=== PATIENT | female | born 1960 | race Caucasian/White ===

== ENCOUNTER → 2016-05-11 | Outpatient (CLI) | payer BC ==
--- NOTE | 2016-05-11 09:37 | CR ---
EXAMINATION: Right shoulder HISTORY: Fracture COMPARISON: 04/20/2016 TECHNIQUE: 2 views FINDINGS/IMPRESSION: There is a stable healing comminuted proximal right humerus fracture identified , grossly unchanged in position and alignment. The remaining adjacent osseous structures appear inta ct.
== END ==
LOC: MW.CHORTHO 07:49
PROVIDERS: ATTEND Physician Assistant
DX: S42.201D Unspecified fracture of upper end of right humerus, subsequent encounter for fracture with routine healing (principal)
CPT/HCPCS: 73030-26-RT; 73030-RT

== ENCOUNTER → 2016-07-06 | Outpatient (CLI) | payer BC ==
--- NOTE | 2016-07-06 10:22 | CR ---
EXAMINATION: Right shoulder HISTORY: Fracture COMPARISON: 06/08/2016 TECHNIQUE: 2 views FINDINGS/IMPRESSION: There is a stable nearly well-healed proximal right humerus fracture. Bone mine ralization otherwise appears normal. The remaining osseous structures appear intact.
== END ==
LOC: MW.CHORTHO 06:56
PROVIDERS: ATTEND Orthopaedic Surgery
DX: S42.201D Unspecified fracture of upper end of right humerus, subsequent encounter for fracture with routine healing (principal)
CPT/HCPCS: 73030-26-RT; 73030-RT

== ENCOUNTER 2017-02-25 07:34 | Day surgery (SDC) | payer BC ==
[~2017-02-25 07:34] MED LIST: Acetaminophen/HYDROcodone 325-5 MG Tab PO PRN; Bupivacaine 25%/EPINEPHrine/PF 30 ML ONE; Lactated Ringers 1,000 ML IV SCH; ceFAZolin 2 GM in Premix Bag 1 BAG IV ONE
[2017-02-25] MEDS ORDERED: Midazolam 1 MG/ML 2 ML SDV ONE ×2 (07:46→08:01)
[2017-02-25] MEDS ORDERED: fentaNYL 100 MCG/2 ML SDV ONE ×2 (07:46→08:01)
[2017-02-25] MEDS ORDERED: Propofol 200 MG/20 ML SDV ONE ×2 (07:46→08:01)
[2017-02-25] MEDS ORDERED: Lidocaine 2% 5 ML SDV ONE ×2 (07:46→08:01)
[2017-02-25] MEDS ORDERED: Ketorolac 30 MG/ML SDV ONE (08:23)
[2017-02-25] MEDS ORDERED: Ondansetron 4 MG/2 ML SDV ONE (08:23)
--- NOTE | 2017-02-25 08:27 | PCM.PREANE ---
Preanesthetic Assessment - Procedure Proposed Procedure: Right carpal tunnel release - Anesthesia/Transfusion/Family Hx Anesthesia History: Prior Anesthesia Without Reaction Other Type of Anesthesia Reaction Comment: pt denies any anesthesia problems Family History of Anesthesia Reaction: No Transfusion History: No Prior Transfusion(s) - Review of Systems General: No Symptoms Pulmonary: No Symptoms Cardiovascular: No Symptoms Gastrointestinal: No Symptoms Neurological: No Symptoms Other: Reports: None - Physical Assessment O2 Sat by Pulse Oximetry: 97 Respiratory Rate: 16 Vital Signs: Last Vital Signs Temp 36 C 02/25/17 07:50 Pulse 84 02/25/17 07:50 Resp 16 02/25/17 07:50 BP 117/74 02/25/17 07:50 Pulse Ox 97 02/25/17 07:50 Height: 1.63 m Weight: 69.853 kg ASA Class: 2 Mental Status: Alert & Oriented x3 Airway Class: Mallampati = 2 Dentition: Reports: Normal Dentition Thyro-Mental Finger Breadths: 3 Mouth Opening Finger Breadths: 3 ROM/Head Extension: Full Lungs: Clear to Auscultation, Normal Respiratory Effort - Allergies Allergies/Adverse Reactions: Allergies Allergy/AdvReac Type Severity Reaction Status Date / Time No Known Allergies Allergy Verified 02/21/17 16:45 - Acknowledgements Anesthesia Type Planned: MAC Pt an Appropriate Candidate for the Planned Anesthesia: Yes Alternatives and Risks of Anesthesia Discussed w Pt/Guardian: Yes Pt/Guardian Understands and Agrees with Anesthesia Plan: Yes PreAnesthesia Questionnaire HEENT History: Reports: Impaired Vision Other HEENT History: wears glasses Cardiovascular History: Reports: None Respiratory History: Reports: None Gastrointestinal History: Reports: None Genitourinary History: Reports: None 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: Musculoskeletal History: Reports: Fracture Other Musculoskeletal History: hx of fx right humerus Neurological History: Reports: None Psychiatric History: Reports: None Endocrine/Metabolic History: Reports: None Hematologic History: Reports: None Immunologic History: Reports: None Oncologic (Cancer) History: Reports: None Dermatologic History: Reports: None - Infectious Disease History Infectious Disease History: Reports: Chicken Pox, Mumps - Past Surgical History Head Surgeries/Procedures: Reports: None HEENT Surgical History: Reports: Tonsillectomy Female Surgical History: Reports: Breast Reduction, Hysterectomy - SUBSTANCE USE Smoking Status *Q: Former Smoker Second Hand Smoke Exposure: No Days Per Week of Alcohol Use: 7 Number of Drinks Per Day: 1 Total Drinks Per Week: 7 Recreational Drug Use History: No - HOME MEDS Home Medications: Home Meds Multivitamin [Multivitamins] 1 tab PO DAILY 02/20/14 [History] LORazepam 0.5 mg PO BEDTIME PRN 02/21/17 [History] Vitamin B Complex 1 cap PO DAILY 02/21/17 [History] - CURRENT (IN HOUSE) MEDS Current Meds: Current Medications Hydrocodone Bitart/Acetaminophen ([place] 325-5 Mg) 1 tab PO Q4H PRN PRN Reason: Pain Bupivacaine HCl/Epinephrine Bitart (Marcaine 0.25%/Epinephrine 1:200,000) 10 ml INJECT ONETIME ONE Stop: 02/25/17 09:01 Lactated Ringer's (Ringers, Lactated) 1,000 mls @ 125 mls/hr IV ASDIRECTED [facility] Last Admin: 02/25/17 07:51 Dose: 125 mls/hr Discontinued Medications Fentanyl (Sublimaze) Confirm Administered Dose 100 mcg .ROUTE .STK-MED ONE Stop: 02/25/17 07:47 Fentanyl (Sublimaze) Confirm Administered Dose 100 mcg .ROUTE .STK-MED ONE Stop: 02/25/17 08:02 Cefazolin Sodium/Dextrose 2 gm (/ Premix) 50 mls @ 100 mls/hr IV ONETIME ONE Stop: 02/24/17 18:14 Bupivacaine HCl/Epinephrine Bitart (Sensorc Mpf 0.25%-Epi 1:790380) Confirm Administered Dose 30 mls @ as directed .ROUTE .STK-MED ONE Stop: 02/25/17 07:30 Lidocaine (Xylocaine-Mpf 2%) Confirm Administered Dose 5 ml .ROUTE .STK-MED ONE Stop: 02/25/17 07:47 Lidocaine (Xylocaine-Mpf 2%) Confirm Administered Dose 5 ml .ROUTE .STK-MED ONE Stop: 02/25/17 08:02 Midazolam HCl (Versed 1 Mg/Ml) Confirm Administered Dose 2 mg .ROUTE .STK-MED ONE Stop: 02/25/17 07:47 Midazolam HCl (Versed 1 Mg/Ml) Confirm Administered Dose 2 mg .ROUTE .STK-MED ONE Stop: 02/25/17 08:02 Propofol (Diprivan 20 Ml) Confirm Administered Dose 200 mg .ROUTE .STK-MED ONE Stop: 02/25/17 07:47 Propofol (Diprivan 20 Ml) Confirm Administered Dose 200 mg .ROUTE .STK-MED ONE Stop: 02/25/17 08:02
--- NOTE | 2017-02-25 08:55 | PCM48HPAN ---
Post Anesthesia Note - EVALUATION WITHIN 48HRS OF ANESTHETIC Vital Signs in Normal Range: Yes Patient Participated in Evaluation: Yes Respiratory Function Stable: Yes Airway Patent: Yes Cardiovascular Function Stable: Yes Hydration Status Stable: Yes Pain Control Satisfactory: Yes Nausea and Vomiting Control Satisfactory: Yes Mental Status Recovered: Yes - COMMENTS/OBSERVATIONS Free Text/Narrative:: no anesthesia problems, patient skipped recovery room stage of postoperative care
[2017-02-25] MEDS ORDERED: Bupivacaine 0.25%/EPINEPHrine 1:200,000 10 ML SDV INJECT ONE (09:00)
[2017-02-25 09:25] VITALS: BP 121/78
--- NOTE | 2017-02-25 19:58 | OR ---
SURGEON: CATHY CARBAJAL MD DATE OF PROCEDURE: 02/25/2017 PREOPERATIVE DIAGNOSIS: Right carpal tunnel syndrome. POSTOPERATIVE DIAGNOSIS: Right carpal tunnel syndrome. PROCEDURE: Right carpal tunnel release. 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 ANESTHESIA: Local MAC. INDICATIONS: Ms. Hernandez is a 56-year-old female with right carpal tunnel symptoms. Risks and benefits of release were discussed with her and she was in agreement to proceed. Risks were including, but not limited to, bleeding, infection, damage to underlying or overlying structures, possible need for future interventions, and possible scarring. PROCEDURE IN DETAIL: After informed consent was obtained and placed on the chart, the patient was brought to the operating theater and laid in supine position. After adequate local MAC anesthesia was obtained, the area was prepped and draped and a time- out was completed to confirm side and site. The arm was exsanguinated and tourniquet was insufflated to 200 mmHg after injection of local and a 15 blade was used to dissect through the skin and subcutaneous tissues under direct visualization until the ligament was breached. Then, dissection was continued distally and proximally under direct visualization until complete release of the ligament. Once adequately released, the area was irrigated and a 5-0 nylon stitch was used to close the skin in a horizontal mattress fashion. The wound was dressed with Xeroform and fluffs and Kerlix, Darian dressing and a 2-inch Eric wrap. The patient tolerated the procedure well. All counts and needles were correct at the end of the case. FOLLOWUP INSTRUCTIONS: The patient will take tramadol for pain and will follow up with us in about two weeks for suture removal, sooner if any problems, questions, or concerns. HEGGTCHELO / ROSE /[id number] SHERLY
--- NOTE | 2017-03-03 16:58 | PCM.HPR ---
H & P Addendum review - H & P Addendum Review Date of Original H & P: 02/17/17 Date Reviewed: 02/25/17 Patient was Examined: Changes (medication changes noted. Otherwise up to date.)
== END 2017-02-25 09:22 | disposition home or self-care (01) ==
LOC: MW.SDS 07:34
PROVIDERS: ATTEND Plastic Surgery
DX: G56.03 Carpal tunnel syndrome, bilateral upper limbs (principal); Z98.890 Other specified postprocedural states; Z90.710 Acquired absence of both cervix and uterus; Z87.891 Personal history of nicotine dependence; Z79.899 Other long term (current) drug therapy; Z82.49 Family history of ischemic heart disease and other diseases of the circulatory system
CPT/HCPCS: 64721; J1885; J2250; J2405; J3010; J7120; 01810; J2704

== ENCOUNTER 2018-10-17 08:14 | Day surgery (SDC) | payer BC ==
[~2018-10-17 08:14] MED LIST changes: -Acetaminophen/HYDROcodone 325-5 MG Tab PO PRN; -Bupivacaine 25%/EPINEPHrine/PF 30 ML ONE; +Sodium Chloride 0.9% 10 ML SDV IV PRN; +Sodium Chloride 0.9% 10 ML Syringe FLUSH PRN; +Sodium Chloride 0.9% 2.5 ML Syringe FLUSH PRN; -ceFAZolin 2 GM in Premix Bag 1 BAG IV ONE
[2018-10-17] MEDS ORDERED: Propofol 200 MG/20 ML SDV ONE (08:27)
[2018-10-17] MEDS ORDERED: fentaNYL 100 MCG/2 ML SDV ONE (08:27)
[2018-10-17] MEDS ORDERED: Midazolam 1 MG/ML 2 ML SDV ONE (08:27)
[2018-10-17] MEDS ORDERED: Lidocaine 2% 5 ML SDV ONE (08:27)
--- NOTE | 2018-10-17 09:07 | PCM.PREANE ---
Preanesthetic Assessment - Anesthesia/Transfusion/Family Hx Anesthesia History: Prior Anesthesia Without Reaction Other Type of Anesthesia Reaction Comment: pt denies any anesthesia problems Family History of Anesthesia Reaction: No Transfusion History: No Prior Transfusion(s) - Review of Systems General: No Symptoms Pulmonary: No Symptoms Cardiovascular: No Symptoms Gastrointestinal: No Symptoms Neurological: No Symptoms Other: Reports: None - Physical Assessment Vital Signs: Last Vital Signs Temp 97.9 F 10/17/18 08:29 Pulse 75 10/17/18 08:29 Resp 14 10/17/18 08:29 BP 133/87 10/17/18 08:29 Pulse Ox 97 10/17/18 08:29 Height: 5 ft 4 in Weight: 72.575 kg ASA Class: 2 Mental Status: Alert & Oriented x3 Airway Class: Mallampati = 2 Dentition: Reports: Normal Dentition ROM/Head Extension: Full Lungs: Clear to Auscultation, Normal Respiratory Effort Cardiovascular: Regular Rate, Regular Rhythm - Allergies Allergies/Adverse Reactions: Allergies Allergy/AdvReac Type Severity Reaction Status Date / Time No Known Allergies Allergy Verified 10/12/18 12:36 - Blood Blood Available: No - Anesthesia Plan Pre-Op Medication Ordered: None - Acknowledgements Anesthesia Type Planned: General Anesthesia Pt an Appropriate Candidate for the Planned Anesthesia: Yes Alternatives and Risks of Anesthesia Discussed w Pt/Guardian: Yes Pt/Guardian Understands and Agrees with Anesthesia Plan: Yes Additional Comments: anes prob list: seasonal allergies/rhinitis, insomnia PLAN: tiva PreAnesthesia Questionnaire HEENT History: Reports: Impaired Vision Other HEENT History: wears glasses Cardiovascular History: Reports: None Respiratory History: Reports: None Gastrointestinal History: Reports: Colon Polyp Genitourinary History: Reports: None 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 History: Reports: Fracture Other Musculoskeletal History: hx of fx right humerus Neurological History: Reports: None Psychiatric History: Reports: None Endocrine/Metabolic History: Reports: None Hematologic History: Reports: None Immunologic History: Reports: None Oncologic (Cancer) History: Reports: None Dermatologic History: Reports: None - Infectious Disease History Infectious Disease History: Reports: Chicken Pox, Mumps - Past Surgical History Head Surgeries/Procedures: Reports: None HEENT Surgical History: Reports: Tonsillectomy Cardiovascular Surgical History: Reports: None Respiratory Surgical History: Reports: None GI Surgical History: Reports: Colonoscopy Female Surgical History: Reports: Breast Reduction, Hysterectomy Endocrine Surgical History: Reports: None Neurological Surgical History: Reports: None Musculoskeletal Surgical History: Reports: Carpal Tunnel Oncologic Surgical History: Reports: None Dermatological Surgical History: Reports: Other (See Below) - SUBSTANCE USE Smoking Status *Q: Never Smoker Recreational Drug Use History: No - HOME MEDS Home Medications: Home Meds LORazepam 0.5 mg PO BEDTIME PRN 02/21/17 [History] Aspirin [Adult Low Dose Aspirin EC] 81 mg PO DAILY 10/12/18 [History] Estradiol [Vagifem] 1 tab VAG ASDIRECTED 10/12/18 [History] Fluticasone Propionate [Flonase Allergy Relief] 1 spray NASBOTH ASDIRECTED PRN 10/12/18 [History] Multivitamin [Gummi Bear Multivitamin] 2 tab.chew CHEW DAILY 10/12/18 [History] - CURRENT (IN HOUSE) MEDS Current Meds: Current Medications Lactated Ringer's (Ringers, Lactated) 1,000 mls @ 125 mls/hr IV ASDIRECTED [facility] Last Admin: 10/17/18 08:50 Dose: 125 mls/hr Sodium Chloride (Saline Flush) 10 ml FLUSH ASDIRECTED PRN PRN Reason: Keep Vein Open Sodium Chloride (Saline Flush) 2.5 ml FLUSH ASDIRECTED PRN PRN Reason: Keep Vein Open Sodium Chloride (Saline Flush) 10 ml FLUSH ASDIRECTED PRN PRN Reason: Keep Vein Open Sodium Chloride (Saline Flush) 2.5 ml FLUSH ASDIRECTED PRN PRN Reason: Keep Vein Open Sodium Chloride (Normal Saline) 10 ml IV ASDIRECTED PRN PRN Reason: IV Use Discontinued Medications Fentanyl (Sublimaze) Confirm Administered Dose 100 mcg .ROUTE .STK-MED ONE Stop: 10/17/18 08:28 Lidocaine (Xylocaine-Mpf 2%) Confirm Administered Dose 5 ml .ROUTE .STK-MED ONE Stop: 10/17/18 08:28 Midazolam HCl (Versed 1 Mg/Ml) Confirm Administered Dose 2 mg .ROUTE .STK-MED ONE Stop: 10/17/18 08:28 Propofol (Diprivan 20 Ml) Confirm Administered Dose 400 mg .ROUTE .STK-MED ONE Stop: 10/17/18 08:28
--- NOTE | 2018-10-17 09:37 | PCM.OPNOTE ---
- General Post-Op/Procedure Note Date of Surgery/Procedure: 10/17/18 Operative Procedure(s): screening colonoscopy Findings: distal transverse colon lesion Pre Op Diagnosis: screening colonoscopy Post-Op Diagnosis: distal transverse colon lesion Anesthesia Technique: MAC Primary Surgeon: Randa Xavier Pathology: distal transverse colon lesion EBL in mLs: 0 Condition: Good
--- NOTE | 2018-10-17 09:54 | PCM.POSTAN ---
POST ANESTHESIA ASSESSMENT - MENTAL STATUS Mental Status: Alert, Oriented - VITAL SIGNS Vital Signs: Last Vital Signs Temp 97.9 F 10/17/18 08:29 Pulse 88 10/17/18 09:47 Resp 13 10/17/18 09:47 BP 123/75 10/17/18 09:47 Pulse Ox 96 10/17/18 09:47 - RESPIRATORY Respiratory Status: Respiratory Rate WNL, Airway Patent, O2 Saturation Stable - CARDIOVASCULAR CV Status: Pulse Rate WNL, Blood Pressure Stable - GASTROINTESTINAL GI Status: No Symptoms - POST OP HYDRATION Hydration Status: Adequate & Stable
--- NOTE | 2018-10-17 09:54 | PCM48HPAN ---
Post Anesthesia Note - EVALUATION WITHIN 48HRS OF ANESTHETIC Vital Signs in Normal Range: Yes Patient Participated in Evaluation: Yes Respiratory Function Stable: Yes Airway Patent: Yes Cardiovascular Function Stable: Yes Hydration Status Stable: Yes Pain Control Satisfactory: Yes Nausea and Vomiting Control Satisfactory: Yes Mental Status Recovered: Yes Vital Signs: Last Vital Signs Temp 97.9 F 10/17/18 08:29 Pulse 88 10/17/18 09:47 Resp 13 10/17/18 09:47 BP 123/75 10/17/18 09:47 Pulse Ox 96 10/17/18 09:47
[2018-10-17 10:36] VITALS: BP 138/79; PULSE 70
--- NOTE | 2018-10-18 13:57 | OR ---
SURGEON: RANDA XAVIER MD DATE OF PROCEDURE: 10/17/2018 PREOPERATIVE DIAGNOSIS: Screening colonoscopy. POSTOPERATIVE DIAGNOSIS: Transverse colon lesion. PROCEDURE PERFORMED: Screening colonoscopy. PRIMARY SURGEON: Randa Xavier MD. ANESTHESIA: MAC. INSTRUMENT USED: Olympus colonoscope. EXTENT OF EXAM: To the cecum. PREPARATION: Good. LIMITATIONS: None. INDICATIONS FOR EXAMINATION: The patient is a 58-year-old female who presents for a screening colonoscopy. I explained the procedure; expected perioperative course; and risks including bleeding, infection, or damage to surrounding structures including perforation. The patient verbalized understanding and wishes to proceed. PROCEDURE IN DETAIL: The patient was brought into the endoscopy suite and placed in a left lateral decubitus position. A time-out was completed verifying the patient's name, age, date of , allergies, and procedure to be performed. Monitored anesthesia care was induced and continuous oxygen was provided via nasal cannula throughout the procedure. After adequate sedation was achieved, a digital rectal exam was performed. This exam was within normal limits. A well-lubricated colonoscope was inserted in the rectum and advanced under direct visualization to the level of the cecum. The cecum was identified by both visual and anatomic landmarks. A photograph was taken of the cecal cap; however, I was unable to retroflex the scope within the cecum due to looping of the scope more proximally. The scope was then fully withdrawn while examining the color, texture, anatomy, and integrity of the mucosa from the cecum to the anal canal. The patient was found to have an elevated area of mucosa in the distal transverse colon proximal to the splenic flexure. This did not overtly appear to be a polyp. However, since it was a raised area of the mucosa, biopsies were taken as well as photographs. The remainder of the colon appeared normal. The scope was brought into the rectum and retroflexed to allow visualization of the anal canal opening. This appeared normal and a photograph was taken. The scope was then straightened out and fully withdrawn. The cecum to anus time was 8 minutes. The patient tolerated the procedure well and was taken to PACU in stable condition. ENDOSCOPIC DIAGNOSIS: Transverse colon lesion. RECOMMENDATIONS: Follow up in clinic in 2 weeks. STEPHEN ROSE /[id number]
== END 2018-10-17 10:27 | disposition home or self-care (01) ==
LOC: MW.SDS 08:14
PROVIDERS: ATTEND Surgery
DX: Z12.11 Encounter for screening for malignant neoplasm of colon (principal); K63.5 Polyp of colon; K64.9 Unspecified hemorrhoids; K21.9 Gastro-esophageal reflux disease without esophagitis; Z86.010 Personal history of colon polyps; Z87.891 Personal history of nicotine dependence; Z79.82 Long term (current) use of aspirin; Z79.899 Other long term (current) drug therapy
CPT/HCPCS: 45380; J2001; J2250; J2704; J3010; J7120; 00811; 88305

== ENCOUNTER 2019-02-24 18:40 | Emergency (ER) | payer BC ==
--- NOTE | 2019-02-24 19:10 | EDM.PDOC ---
ED HPI GENERAL MEDICAL PROBLEM - General Chief Complaint: Upper Extremity Injury/Pain Stated Complaint: JAMMED FINGER Time Seen by Provider: 02/24/19 19:10 Source of Information: Reports: Patient History Limitations: Reports: No Limitations - History of Present Illness INITIAL COMMENTS - FREE TEXT/NARRATIVE: HISTORY AND PHYSICAL: History of present illness: Patient is a 58-year-old female presents to the ED with complaint of right middle finger injury. She states she jammed the finger while she was cleaning a bench. She has no other injury or complaints at this time. Review of systems: As per history of present illness and below otherwise all systems reviewed and negative. Past medical history: As per history of present illness and as reviewed below otherwise noncontributory. Surgical history: As per history of present illness and as reviewed below otherwise noncontributory. Social history: No reported history of drug or alcohol abuse. Family history: As per history of present illness and as reviewed below otherwise noncontributory. Physical exam: General: Patient sitting comfortably in no acute distress and nontoxic appearing HEENT: Atraumatic, normocephalic, pupils reactive, negative for conjunctival pallor or scleral icterus, mucous membranes moist, throat clear, neck supple, nontender, trachea midline. No meningeal signs. Lungs: Clear to auscultation, breath sounds equal bilaterally, chest nontender. Heart: S1S2, regular, negative for clicks, rubs, or overt murmur. Abdomen: Soft, nondistended, nontender. Negative for masses or hepatosplenomegaly. Negative for costovertebral tenderness. No rigidity, rebound , guarding. Pelvis: Stable nontender. Genitourinary: Deferred. Rectal: Deferred. Extremities: Patient has a "swan neck" deformity of the right middle finger. Atraumatic, negative for cords or calf pain. Neurovascular unremarkable. Neuro: Awake, alert, oriented. Cranial nerves II through XII unremarkable. Cerebellum unremarkable. Motor and sensory unremarkable throughout. Exam nonfocal. Notes: Patient instructed to wear splint until follow up with orthopedics. Diagnostics: x-ray right middle finger Therapeutics: Finger splint Prescriptions: Impression: Right middle finger injury Definitive disposition and diagnosis as appropriate pending reevaluation and review of above. Right Finger-Middle Pain Score (Numeric/FACES): 6 - Related Data Allergies Allergy/AdvReac Type Severity Reaction Status Date / Time No Known Allergies Allergy Verified 02/24/19 19:13 Home Meds: Home Meds LORazepam 0.5 mg PO BEDTIME PRN 02/21/17 [History] Aspirin [Adult Low Dose Aspirin EC] 81 mg PO DAILY 10/12/18 [History] Estradiol [Vagifem] 1 tab VAG ASDIRECTED 10/12/18 [History] Fluticasone Propionate [Flonase Allergy Relief] 1 spray NASBOTH ASDIRECTED PRN 10/12/18 [History] Multivitamin [Gummi Bear Multivitamin] 2 tab.chew CHEW DAILY 10/12/18 [History] Past Medical History HEENT History: Reports: Impaired Vision Other HEENT History: wears glasses Cardiovascular History: Reports: None Respiratory History: Reports: None Gastrointestinal History: Reports: Colon Polyp Genitourinary History: Reports: None 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: Reports: Fracture Other Musculoskeletal History: hx of fx right humerus Neurological History: Reports: None Psychiatric History: Reports: None Endocrine/Metabolic History: Reports: None Hematologic History: Reports: None Immunologic History: Reports: None Oncologic (Cancer) History: Reports: None Dermatologic History: Reports: None - Infectious Disease History Infectious Disease History: Reports: Chicken Pox, Mumps - Past Surgical History Head Surgeries/Procedures: Reports: None HEENT Surgical History: Reports: Tonsillectomy Cardiovascular Surgical History: Reports: None Respiratory Surgical History: Reports: None GI Surgical History: Reports: Colonoscopy Female Surgical History: Reports: Breast Reduction, Hysterectomy Endocrine Surgical History: Reports: None Neurological Surgical History: Reports: None Musculoskeletal Surgical History: Reports: Carpal Tunnel Oncologic Surgical History: Reports: None Dermatological Surgical History: Reports: Other (See Below) Social & Family History - Family History Family Medical History: Noncontributory Review of Systems - Review of Systems Review Of Systems: Comprehensive ROS is negative, except as noted in HPI. ED EXAM, GENERAL - Physical Exam Exam: See Below (see dictation) Course - Vital Signs Last Recorded V/S: Last Vital Signs Temp 97.6 F 02/24/19 19:30 Pulse 85 02/24/19 19:30 Resp 16 02/24/19 19:30 BP 111/61 02/24/19 19:30 Pulse Ox 95 02/24/19 19:30 Departure - Departure Time of Disposition: 19:29 Disposition: Home, Self-Care 01 Condition: Good Clinical Impression: Injury of right middle finger Clinical Impression: (Ruled Out): Injury of right index finger - Discharge Information Instructions: Jammed Finger Referrals: PCP,None [Primary Care Provider] - Steve Lockwood DO [Physician] - Forms: ED Department Discharge Additional Instructions: The following information is given to patients seen in the emergency department who are being discharged to home. This information is to outline your options for follow-up care. We provide all patients seen in our emergency department with a follow-up referral. The need for follow-up, as well as the timing and circumstances, are variable depending upon the specifics of your emergency department visit. If you don't have a primary care physician on staff, we will provide you with a referral. We always advise you to contact your personal physician following an emergency department visit to inform them of the circumstance of the visit and for follow-up with them and/or the need for any referrals to a consulting specialist. The emergency department will also refer you to a specialist when appropriate. This referral assures that you have the opportunity for follow-up care with a specialist. All of these measure are taken in an effort to provide you with optimal care, which includes your follow-up. Under all circumstances we always encourage you to contact your private physician who remains a resource for coordinating your care. When calling for follow-up care, please make the office aware that this follow-up is from your recent emergency room visit. If for any reason you are refused follow-up, please contact the [facility] Emergency Department at and asked to speak to the emergency department charge nurse. [facility] [address] [place] [address] [address] [facility] Professional Building [address] [place] [address], [address] [place] [address] Wear splint as instructed Alternate tylenol and motrin as needed Follow up with orthopedics Return to ED as needed as discussed Sepsis Event Note - Focused Exam Vital Signs: Vital Signs Temp Pulse Resp BP Pulse Ox 02/24/19 19:30 97.6 F 85 16 111/61 95 02/24/19 19:14 97.3 F 93 18 109/56 L 94 L Date Exam was Performed: 02/24/19 Time Exam was Performed: 19:37
--- NOTE | 2019-02-24 19:25 | CR ---
TECHNIQUE: Two views of the right hand. INDICATION: Jammed middle finger. FINDINGS: The DIP joint of the middle finger is held in flexion on the lateral image. There is no acute fracture or dislocation identified. Dictated by Cortez Schaefer MD @ Feb 24 2019 7:21PM Signed by Dr. Cortez Schaefer @ Feb 24 2019 7:24PM
[2019-02-24 19:31] VITALS: BP 111/61; PULSE 85
== END 2019-02-24 19:39 | disposition home or self-care (01) ==
LOC: MW.ED 18:40
DX: S69.91XA Unspecified injury of right wrist, hand and finger(s), initial encounter (principal); W23.1XXA Caught, crushed, jammed, or pinched between stationary objects, initial encounter
CPT/HCPCS: 73120-26-RT; 73120-RT; 99283; 99283-25

== ENCOUNTER 2024-05-22 08:35 | Day surgery (SDC) | payer BC ==
[~2024-05-22 08:35] MED LIST changes: -Lactated Ringers 1,000 ML IV SCH; -Sodium Chloride 0.9% 10 ML SDV IV PRN; +Sodium Chloride 0.9% 20 ML SDV IV PRN
[2024-05-22] MEDS: Lactated Ringers 1,000 ML IV SCH (08:55)
[2024-05-22] MEDS ORDERED: Propofol 200 MG/20 ML SDV ONE (09:25)
[2024-05-22] MEDS ORDERED: Magnesium Sulfate (4.06 MEQ/ML) 5 GM/10 ML SDV ONE (10:35)
[2024-05-22 11:21] VITALS: PULSE 72
[2024-05-22 12:26] VITALS: BP 112/76
== END 2024-05-22 11:45 | disposition home or self-care (01) ==
LOC: MW.SDS 08:35
PROVIDERS: ATTEND Surgery
DX: Z12.11 Encounter for screening for malignant neoplasm of colon (principal); Z79.899 Other long term (current) drug therapy; Z87.891 Personal history of nicotine dependence; Z86.0100 Personal history of colon polyps, unspecified
CPT/HCPCS: 45378; J2704; J3475; J7120; 00811